=== PATIENT | female | born 1985 | race Caucasian/White ===

== ENCOUNTER 2016-09-18 19:33 | Emergency (ER) | payer OTHER ==
[~2016-09-18 19:33] MED LIST: PREN1TAB52 PO
== END 2016-09-18 20:33 | disposition left against medical advice (07) ==
LOC: EMS 19:36
DX: O26.899 Other specified pregnancy related conditions, unspecified trimester (principal); R10.9 Unspecified abdominal pain; Z3A.00 Weeks of gestation of pregnancy not specified; Z53.21 Procedure and treatment not carried out due to patient leaving prior to being seen by health care provider